=== PATIENT | female | born 1995 | race Caucasian/White ===

== ENCOUNTER → 2016-10-20 | Outpatient (CLI) | payer OTHER ==
[~2016-10-20] MED LIST: NO HOME MEDICATIONS; SPRINTEC 35 MCG1 TAB
[2016-10-20 16:00] VITALS: BP 108/84
[2016-10-20 16:44] VITALS: BP 109/84
[2016-10-20 17:12] VITALS: BP 121/86
--- NOTE | 2016-10-20 17:59 | NUR ---
Pt presents to OP room 101 for IV NS, Zofran and Pepcid. SL Placed in L forearm on 5th attempt. Lab's drawn. IVP Zofran given over one minute, Pepcid given over two minutes. Fluid infusion started without difficulty. UA recieved and taken to lab after infusino complete. Provider Nicolette Stewart [employer] in to discuss labs with pt and Transfer VIA POV to [facility]. Pt has a known HX of IV drug use. After discussing it with the pt, provider chooses to leave IV in pt while she transfers POV to [facility].
== END ==
LOC: AMSURD 15:12
DX: R11.2 Nausea with vomiting, unspecified (principal); R10.11 Right upper quadrant pain; R17 Unspecified jaundice
CPT/HCPCS: J2405; J7030

== ENCOUNTER → 2016-10-25 | Outpatient (CLI) | payer OTHER | LOC: LAB 15:25 | DX: R17 Unspecified jaundice (principal) ==

== ENCOUNTER → 2016-10-27 | Outpatient (CLI) | payer OTHER | LOC: LAB 11:31 | DX: B17.10 Acute hepatitis C without hepatic coma (principal); R79.89 Other specified abnormal findings of blood chemistry ==

== ENCOUNTER → 2016-11-30 | Outpatient (CLI) | payer OTHER | LOC: LAB 14:30 | DX: B17.10 Acute hepatitis C without hepatic coma (principal); R79.89 Other specified abnormal findings of blood chemistry ==